=== PATIENT | male | born 1995 | race Caucasian/White ===

== ENCOUNTER 2024-03-31 15:40 | Emergency (ER) | payer OTHER ==
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
== END 2024-03-31 20:07 | disposition home or self-care (01) ==
LOC: EC 15:40
CPT/HCPCS: 70450; 99284